=== PATIENT | male | born 1975 | race African-American/Black ===

== ENCOUNTER 2017-11-02 22:35 | Emergency (ER) | payer MEDICAID ==
[~2017-11-02] VITALS: Ht 182.9 cm; Wt 90.7 kg
[2017-11-02 23:39] LABS: Basophils # (auto) 0.1 uL; Basophils % (auto) 1.9 % (0.0-2.0); Eosinophils # (auto) 0.3 uL; Eosinophils % (auto) 3.6 % (0.0-7.0); Hematocrit 42.7 % (41.0-53.0); Lymphocytes # (auto) 2.2 uL; Lymphocytes % (auto) 31.5 % (10.0-50.0); Mean Corpuscular Hemoglobin 27.7 pg (28.0-32.0); Mean Corpuscular Hgb Conc. 32.7 g/dL (32.0-36.0); Mean Corpuscular Volume 84.7 fL (80.0-100.0); Monocytes # (auto) 0.6 uL; Neutrophils # (auto) 3.8 uL; Platelet Count (auto) 276 10^3/uL (140-450); Red Blood Cells 5.04 10^6/uL (4.5-5.90); Red Cell Distribution Width 13.7 % (11.8-14.3); White Blood Cell 7.1 10^3/uL (4.4-10.8)
[2017-11-02 23:54] LABS: Anion Gap 9 (5-15); Aspartate Aminotransferase 28 U/L (15-37); BUN/Creatinine Ratio 12.7; Blood Urea Nitrogen 16 mg/dL (7-18); Carbon Dioxide 25 mmol/L (21-32); Chloride 106 mmol/L (98-107); GFR African American 82 mL/min; GFR Non-African American 67 mL/min; Glucose 100 mg/dL (74-106); Sodium 140 mmol/L (136-145)
[2017-11-02 23:55] LABS: Alanine Aminotransferase 27 U/L (16-61); Blood Alcohol < 3.0 mg/dL (0-5); Calcium 8.7 mg/dL (8.5-10.1)
[2017-11-02 23:58] LABS: Alkaline Phosphatase 76 U/L (45-117); Bilirubin, Total 0.3 mg/dL (0.2-1.0); Total Protein 7.8 g/dL (6.4-8.2)
[2017-11-03 00:09] LABS: Potassium 2.9 mmol/L (3.5-5.1)
[2017-11-03] MEDS ORDERED: POTASSIUM CHL 20 Meq TABLET PO ONE (00:15)
[2017-11-03 02:35] VITALS: BP 159/98
== END 2017-11-03 02:47 | disposition home or self-care (01) ==
LOC: ER 22:46
DX: R55 Syncope and collapse (principal); E87.6 Hypokalemia; N39.0 Urinary tract infection, site not specified; J45.909 Unspecified asthma, uncomplicated; I10 Essential (primary) hypertension
CPT/HCPCS: 36415; 70450; 71045; 80053; 80320; 85025; 93005